=== PATIENT | female | born 1945 | race Caucasian/White ===

== ENCOUNTER 2021-08-27 10:25 | Outpatient (CLI) | payer MEDICARE, MEDICAID | END 2021-08-27 10:26 | disposition home or self-care (01) | LOC: CSHCP 10:25 | PROVIDERS: ATTEND Internal Medicine | DX: J44.9 Chronic obstructive pulmonary disease, unspecified (principal); R94.2 Abnormal results of pulmonary function studies | CPT/HCPCS: 94060; 94726; 94729; 94760 ==

== ENCOUNTER 2024-02-25 08:14 | Day surgery (SDC) | payer OTHER, MEDICAID ==
[2024-02-18 11:05] VITALS: BMI 19.8
[2024-02-25] MEDS ORDERED: Iopamidol 300 61% 100 ML VIAL FS ONE (08:48)
[2024-02-25 09:54] VITALS: BP 178/77; TEMP 97.9
[2024-02-25] MEDS ORDERED: Aspirin 325 MG TAB ONE (09:56)
[2024-02-25] MEDS ORDERED: Ascorbic Acid 500 mg Chewable Tablet ONE (09:56)
[2024-02-25] MEDS ORDERED: FLU (Fluad Triv) TS24-25 (65UP)/MF59C/PF 45 MCG/0.5 ML Syringe IM ONE (10:15)
[2024-02-25 10:24] LABS: Prothrombin Time 10.7 sec (9.5-12.1)
[2024-02-25 10:27] LABS: Anion Gap 13 mmol/L (10-20); BUN (Urea Nitrogen) 17 mg/dL (9.8-20.1); Calc. Creatinine Clearance 46 mL/min (70-130); Calcium 9.5 mg/dL (7.8-10.44); Carbon Dioxide 31 mmol/L (23-31); Chloride 103 mmol/L (98-107); Estimated GFR 80; Glucose 82 mg/dL (83-110); Sodium 143 mmol/L (136-145)
[2024-02-25] MEDS ORDERED: Lidocaine 1% (PF) 30 ML VIAL ONE (10:32)
[2024-02-25] MEDS ORDERED: Heparin 10,000 UNITS/ 10 ML VIAL ONE (10:32)
[2024-02-25] MEDS ORDERED: Nitroglycerin 50 MG/250 ML BOT 0 ML ONE (10:33)
[2024-02-25 10:40] LABS: #Basophils 0.07 10x3/uL (0.0-0.2); #Monocytes 0.57 10x3/uL (0.0-1.1); %Basophils 0.9 % (0.0-2.0); %Eosinophils 1.3 % (0.0-6.0); %Lymphocytes 15.8 % (18.0-47.0); %Monocytes 7.3 % (0.0-10.0); %Neutrophils 74.4 % (40.0-75.0); Hematocrit 37.7 % (34.9-44.5); Hemoglobin 11.8 g/dL (12.0-15.5); Mean Corpuscular HGB CONC 31.3 g/dL (32.0-36.0); Mean Corpuscular Hemoglobin 27.8 pg (27.0-33.0); Mean Corpuscular Volume 88.7 fL (81.6-98.3); Mean Platelet Volume 9.5 fL (7.4-10.4); Platelet Count 249 10x3/uL (150-450); RBC Distribution Width 13.3 % (11.5-14.5); Red Blood Cell (RBC) Count 4.25 10x6/uL (3.90-5.03); White Blood Cell (WBC) Count 7.8 10x3/uL (3.5-10.5)
[2024-02-25] MEDS ORDERED: Midazolam HCl 2 mg/2 ml Vial ONE (11:42)
[2024-02-25] MEDS ORDERED: fentaNYL 50 mcg/mL 1 mL Vial ONE ×2 (11:42→13:13)
[2024-02-25] MEDS ORDERED: dilTIAZem 125 MG/25 ML SDV ONE (13:33)
[2024-02-25] MEDS ORDERED: niCARdipine 25 MG/10 ML SDV ONE (13:39)
[2024-02-25] MEDS ORDERED: Clopidogrel Bisulfate 300 MG TAB ONE (14:18)
== END 2024-02-25 18:45 | disposition home or self-care (01) ==
LOC: CSHSDC 08:14
PROVIDERS: ATTEND Specialist
PROC: B206YZZ Plain Radiography of Right and Left Heart using Other Contrast (ICD-10-PCS; principal; 2024-02-25)
DX: I70.213 Atherosclerosis of native arteries of extremities with intermittent claudication, bilateral legs (principal); I10 Essential (primary) hypertension; E78.5 Hyperlipidemia, unspecified; I25.82 Chronic total occlusion of coronary artery; I48.0 Paroxysmal atrial fibrillation; I65.23 Occlusion and stenosis of bilateral carotid arteries; J44.9 Chronic obstructive pulmonary disease, unspecified; K21.9 Gastro-esophageal reflux disease without esophagitis; Z90.710 Acquired absence of both cervix and uterus; Z90.49 Acquired absence of other specified parts of digestive tract; Z90.89 Acquired absence of other organs; Z98.890 Other specified postprocedural states; Z79.899 Other long term (current) drug therapy; Z79.82 Long term (current) use of aspirin; Z79.01 Long term (current) use of anticoagulants
CPT/HCPCS: 37252; 75630; 80048; 85025; 85347 ×2; 85610; J1644; J2001; J2250; J3010; 37226; 37253; 75716; 75736; 75774; 99152; 99153; C1725; C1753; C1760; C1769; C1876; C1887; C1894; C2623; Q9967